=== PATIENT | male | born 1990 | race Caucasian/White ===

== ENCOUNTER 2017-10-15 07:19 | Emergency (ER) | payer SELFPAY ==
[2017-10-15] MEDS: LIDOCAINE 2% JELLY 30 ML TOP (07:59)
== END 2017-10-15 08:09 | disposition home or self-care (01) ==
LOC: M ED 07:19
DX: K64.5 Perianal venous thrombosis (principal); F32.9 Major depressive disorder, single episode, unspecified; F17.210 Nicotine dependence, cigarettes, uncomplicated
CPT/HCPCS: 99283